=== PATIENT | male | born 1995 | race Caucasian/White ===

== ENCOUNTER 2017-01-24 08:58 | Emergency (ER) | payer OTHER | END 2017-01-24 09:13 | disposition home or self-care (01) | LOC: FER 08:58 | DX: H65.92 Unspecified nonsuppurative otitis media, left ear (principal); F17.210 Nicotine dependence, cigarettes, uncomplicated; Z96.22 Myringotomy tube(s) status | CPT/HCPCS: 99282 ==

== ENCOUNTER 2017-02-19 19:10 | Emergency (ER) | payer OTHER ==
[2017-02-19 20:33] LABS: BASOPHIL 0.4 % (0-2); EOSINOPHIL 0.2 % (0-5); HCT 49.2 % (42.0-52.0); HGB 17.6 g/dl (13.2-18.0); LYMPHOCYTE 13.8 % (15-48); MCH 28.9 pg (25.0-31.0); MCHC 35.8 g/dL (32.0-36.0); MCV 80.7 fL (78.0-100.0); MONOCYTE 6.5 % (0-12); MPV 9.8 fL (6.0-9.5); NEUTROPHIL 79.1 % (41-80); PLT 248 K/uL (150-400); RDW 13.9 % (11.5-14.0); WBC 11.3 K/uL (4.0-10.5)
[2017-02-19 20:44] LABS: AMPHETAMINES NEGATIVE (NEGATIVE); BARBITURATES NEGATIVE (NEGATIVE); BENZODIAZEPINES NEGATIVE (NEGATIVE); COCAINE NEGATIVE (NEGATIVE); MARIJUANA (THC) NEGATIVE (NEGATIVE); METHADONE NEGATIVE (NEGATIVE); TRICYCLIC ANTIDEPRESSANT NEGATIVE (NEGATIVE)
[2017-02-19 20:48] LABS: BILIRUBIN - TOTAL 0.5 mg/dL (0.1-1.0); CREATININE 0.9 mg/dL (0.7-1.2); GLOBULIN (CALCULATION) 2.5 g/dL (2.2-4.2); POTASSIUM 3.6 mmol/L (3.5-5.1); TOTAL PROTEIN 7.5 g/dL (6.4-8.3)
[2017-02-19 20:49] LABS: ACETAMINOPHEN (TYLENOL) < 5.0 ug/mL (10.0-30.0); ALCOHOL (ETOH) MEDICAL NONE DETECTED; SALICYLATE < 6 ug/mL (0-300)
== END 2017-02-20 05:50 | disposition other institution (70) ==
LOC: FER 19:10
PROVIDERS: Emergency Medicine
DX: F32.9 Major depressive disorder, single episode, unspecified (principal); F17.210 Nicotine dependence, cigarettes, uncomplicated
CPT/HCPCS: 36415; 80053; 80305; 85025; 99285; G0480

== ENCOUNTER 2022-01-26 11:47 | Emergency (ER) | payer SELFPAY ==
[~2022-01-26 11:47] MED LIST: PROAIR HFA8.5 GM INH
[2022-01-26] MEDS ORDERED: ONDANSETRON ODT4 MG PO (12:23)
[2022-01-26 13:10] LABS: CORONAVIRUS 2019 SARS-COV-2 NEGATIVE (NEGATIVE); INFLUENZA A NAA NEGATIVE (NEGATIVE)
== END 2022-01-26 12:57 | disposition home or self-care (01) ==
LOC: FER 11:47
PROVIDERS: Physician Assistant
DX: R11.2 Nausea with vomiting, unspecified (principal); R51.9 Headache, unspecified; R42 Dizziness and giddiness; F17.210 Nicotine dependence, cigarettes, uncomplicated; Z20.822 Contact with and (suspected) exposure to COVID-19
CPT/HCPCS: 99283; U0002